=== PATIENT | female | born 1990 | race Caucasian/White ===

== ENCOUNTER 2018-09-15 04:58 | Inpatient (IN) | payer MEDICAID ==
[2018-09-15] VITALS (17 sets, daily range): BP systolic 92–113; BP diastolic 51–88
[~2018-09-15] VITALS: Ht 165.1 cm; Wt 83.9 kg
[~2018-09-15 04:58] MED LIST: PREN-96 PO
[2018-09-15] MEDS ORDERED: LACTATED RINGER'S 1,000 ML IV SCH (05:04)
[2018-09-15 06:00] LABS: Basophils # (auto) 0.1 uL; Basophils % (auto) 0.9 % (0.0-2.0); Eosinophils # (auto) 0.1 uL; Eosinophils % (auto) 0.9 % (0.0-7.0); Hematocrit 37.6 % (36.0-46.0); Hemoglobin 12.5 g/dL (12.2-16.2); Lymphocytes % (auto) 14.7 % (10.0-50.0); Mean Corpuscular Hemoglobin 29.5 pg (28.0-32.0); Mean Corpuscular Hgb Conc. 33.2 g/dL (32.0-36.0); Mean Corpuscular Volume 88.7 fL (80.0-100.0); Monocytes # (auto) 0.5 uL; Monocytes % (auto) 6.9 % (0.0-12.0); Neutrophils # (auto) 5.2 uL; Neutrophils % (auto) 76.6 % (37.0-80.0); Platelet Count (auto) 162 10^3/uL (140-450); Red Blood Cells 4.24 10^6/uL (4.0-5.20); Red Cell Distribution Width 14.1 % (11.8-14.3); White Blood Cell 6.7 10^3/uL (4.4-10.8)
[2018-09-15 06:11] LABS: Urine Bacteria FEW /hpf (None Seen); Urine Blood Negative /uL (Negative); Urine Mucus FEW (None Seen); Urine Specific Gravity 1.015 (1.001-1.035); Urine WBC 1 /hpf (0 - 5)
[2018-09-15 06:16] LABS: INR < 0.93 (0.9-1.15); Partial Thromboplastin Time 27.3 sec (23.64-32.05)
[2018-09-15 06:20] LABS: Albumin 2.8 g/dL (3.4-5.0); BUN/Creatinine Ratio 13.3; Calcium 8.6 mg/dL (8.5-10.1); Potassium 3.9 mmol/L (3.5-5.1)
[2018-09-15 06:22] LABS: Bilirubin, Total 0.4 mg/dL (0.2-1.0); Total Protein 6.8 g/dL (6.4-8.2)
[2018-09-15] MEDS ORDERED: ePHEDrine SULFATE 50 MG/ML AMP ONE (08:59)
[2018-09-15] MEDS ORDERED: PHENYLEPHRINE HCL 10 MG/ML VL ONE (08:59)
[2018-09-15] MEDS ORDERED: OXYTOCIN 10 UNIT/ML 10ML VIAL ONE (09:02)
[2018-09-15] MEDS ORDERED: ceFAZolin 1GM VL ONE (09:02)
[2018-09-15] MEDS ORDERED: TETRACAINE 1% INJ 2 ML VIAL IJ ONE ×2 (09:32→09:49)
[2018-09-15] MEDS ORDERED: MORPHINE SULF(PF) 0.5MG/ML 10ML VIAL ONE (09:51)
[2018-09-15] MEDS ORDERED: MIDAZOLAM HCL 1MG/1ML-2 ML VIAL ONE (10:58)
[2018-09-15] MEDS ORDERED: diphenhdrAMINE HCL 50 MG/1 ML VL IV PRN (11:45)
[2018-09-15] MEDS ORDERED: ONDANSETRON HCL 4 MG/2 ML VIAL IV ONE (11:45)
[2018-09-15] MEDS ORDERED: HYDROmorphone HCL 2 MG/ML VL IV PRN ×2 (11:45)
[2018-09-15] MEDS ORDERED: METOCLOPRAMIDE HCL 5MG/ml INJ 2ml VIAL IV ONE (11:45)
[2018-09-15] MEDS ORDERED: KETOROLAC TROMETH 15 mg/ml 1ML VL IV PRN (11:45)
[2018-09-15] MEDS ORDERED: NALOXONE HCL 0.4 MG/ML VIAL IV PRN ×2 (11:45)
[2018-09-15] MEDS ORDERED: ONDANSETRON HCL 4 MG/2 ML VIAL IV PRN ×2 (11:45)
[2018-09-15] MEDS: KETOROLAC TROMETH 15 mg/ml 1ML VL IV SCH ×3 (12:00→23:39)
[2018-09-15] MEDS ORDERED: OXYTOCIN 10UNIT/ML 1ML VIAL ONE (12:07)
--- NOTE | 2018-09-15 13:30 | NUR ---
Post Op for LDRP: Received patient from PACU via bed to room 7B. Patient A/A/Ox4, abdominal binder and bilateral SCD's are in place, IV patent running LR with 20 unit Pitocin placed on pump and infusing per order, incisional site dressing clean/dry/intact and Funez Catheter to gravity draining clear yellow urine. Incentive Spirometer at bedside and instruction on proper use with return demonstration done by patient. Frequent vital signs taken. See flowsheet.
[2018-09-15] MEDS ORDERED: ACETAMINOPHEN IV 1000 MG/100ML (10MG/ML) IV ONE (14:45)
[2018-09-15] MEDS: ceFAZolin 1GM/50ML 50 ML IV SCH (18:53)
[2018-09-15] MEDS: LACTATED RINGER'S 1,000 ML IV SCH (21:55)
--- NOTE | 2018-09-15 23:15 | NUR ---
Ambulation: Pericare done, clean peripad and underwear provided. Patient OOB with standby assistance by RN to bedside chair. Patient ambulated with steady gait. Clean gown provided and bed linen changed. Patient reports no dizziness or light headedness, patient ambulates in hallway with RN standby assistance. Patient able to ambulate with steady gait, no distress noted. Patient back to bed, call light within reach and patient able to make needs known.
[2018-09-16] MEDS: ceFAZolin 1GM/50ML 50 ML IV SCH ×2 (02:37→11:46)
[2018-09-16 02:51] VITALS: BP 96/56
[2018-09-16 05:08] LABS: RPR Non Reactive (Non Reactive)
[2018-09-16] MEDS: KETOROLAC TROMETH 15 mg/ml 1ML VL IV SCH (05:42)
[2018-09-16 05:54] LABS: Basophils # (auto) 0 uL; Basophils % (auto) 0.1 % (0.0-2.0); Eosinophils # (auto) 0 uL; Eosinophils % (auto) 0.2 % (0.0-7.0); Hematocrit 33.7 % (36.0-46.0); Hemoglobin 11.6 g/dL (12.2-16.2); Lymphocytes # (auto) 0.6 uL; Lymphocytes % (auto) 6.9 % (10.0-50.0); Mean Corpuscular Hemoglobin 30.4 pg (28.0-32.0); Mean Corpuscular Hgb Conc. 34.3 g/dL (32.0-36.0); Mean Corpuscular Volume 88.6 fL (80.0-100.0); Monocytes # (auto) 0.5 uL; Monocytes % (auto) 5.7 % (0.0-12.0); Neutrophils % (auto) 87.1 % (37.0-80.0); Platelet Count (auto) 148 10^3/uL (140-450); Red Cell Distribution Width 14.3 % (11.8-14.3); White Blood Cell 8.1 10^3/uL (4.4-10.8)
[2018-09-16 06:44] VITALS: BP 108/58
[2018-09-16] MEDS ORDERED: HYDROcodone-ACET 5/325MG TAB PO PRN (07:15)
[2018-09-16] MEDS ORDERED: BISACODYL 10 MG RECT SUPP PR PRN (07:15)
--- NOTE | 2018-09-16 07:15 | NUR ---
SPARKS CATHETER DISCONTINUED Order to discontinue sparks catheter. Sparks discontinued with clean technique following deflation of balloon. 600 ml of dark yellow urine. Patient tolerated well with no complaints of pain. Continue care.
[2018-09-16] MEDS: SIMETHICONE 80 MG CHEWABLE TABLET PO SCH ×3 (08:02→21:44)
[2018-09-16] MEDS: DOCUSATE CALCIUM 240 MG CAP PO SCH (10:00)
[2018-09-16] MEDS: DOCUSATE SOD 100 MG CAP PO SCH ×2 (10:00→21:44)
[2018-09-16 11:10] VITALS: BP 100/67
[2018-09-16] MEDS: FERROUS SULFATE 325 MG TAB PO SCH ×2 (11:46→21:44)
[2018-09-16] MEDS: IBUPROFEN 800 MG TAB PO PRN ×2 (13:19→21:45)
[2018-09-16 15:30] VITALS: BP 93/63
--- NOTE | 2018-09-16 15:50 | NUR ---
Teaching: . Discussed different positions, proper latch, feeding cues, and baby-led . Provided information of medication side effects related to . All questions and concerns addressed at this time. Patient verbalized understanding of information. infant latched on, bonding well.
[2018-09-16] MEDS: HYDROcodone-ACET 5/325MG TAB PO PRN ×2 (16:50→22:51)
--- NOTE | 2018-09-16 18:30 | NUR ---
IS teaching provided to patient. Instructed to use IS at least 10x per hour. Patient verbalizes understanding.
[2018-09-16 19:00] VITALS: BP 95/57
--- NOTE | 2018-09-16 22:15 | NUR ---
Patient ambulates around bedroom at this time. No distress noted.
[2018-09-16 23:13] VITALS: BP 98/64
[2018-09-17 03:20] VITALS: BP 94/64
[2018-09-17] MEDS: HYDROcodone-ACET 5/325MG TAB PO PRN ×2 (04:22→19:47)
[2018-09-17] MEDS: SIMETHICONE 80 MG CHEWABLE TABLET PO SCH ×4 (05:47→22:15)
--- NOTE | 2018-09-17 06:15 | NUR ---
Report received from MUNA Britt on stable pt. Assumed care of pt. Addendum: 09/17/18 at 0747 by Yaritza Adame RN Amended: Links added.
--- NOTE | 2018-09-17 06:40 | NUR ---
Assessment complete. Pt resting in bed. Pain 0/10. Abdominal incision-BULK SEALER, [address], no redness, no edema, no ecchimosis, edges well approximated. Educated on need to ambulate, drink fluids, call for assistance, use IS 10x hour. Updated on plan of care. Board updated. Verbalized understanding of all information. Call light in reach. Sd rails up x 2. Bed low. Stable.
[2018-09-17 06:47] VITALS: BP 99/62
[2018-09-17] MEDS: DOCUSATE SOD 100 MG CAP PO SCH ×2 (10:35→22:14)
[2018-09-17] MEDS: DOCUSATE CALCIUM 240 MG CAP PO SCH (10:35)
[2018-09-17] MEDS: FERROUS SULFATE 325 MG TAB PO SCH ×2 (10:35→22:14)
[2018-09-17] MEDS: IBUPROFEN 800 MG TAB PO PRN ×2 (10:39→22:13)
[2018-09-17 11:35] VITALS: BP 94/64
[2018-09-17 15:30] VITALS: BP 104/68
--- NOTE | 2018-09-17 17:27 | NUR ---
20G IV d/c'd from left hand with catheter intact. Pt tolerated well.
--- NOTE | 2018-09-17 18:20 | NUR ---
Report given to Bernardo Mcknight RN on stable pt. Relinquished care. Addendum: 09/17/18 at 1850 by Yaritza Adame RN Amended: Links added.
[2018-09-17 19:18] VITALS: BP 103/65
--- NOTE | 2018-09-17 22:10 | NUR ---
Keanu Aponte CNM at bedside removing PT's africa and applying steri strips. PT. tolerating procedure well.
[2018-09-17 23:00] VITALS: BP 96/53
[2018-09-18] MEDS: HYDROcodone-ACET 5/325MG TAB PO PRN ×2 (00:58→09:44)
[2018-09-18 03:00] VITALS: BP 99/66
[2018-09-18] MEDS: IBUPROFEN 800 MG TAB PO PRN (05:55)
[2018-09-18] MEDS: SIMETHICONE 80 MG CHEWABLE TABLET PO SCH ×2 (05:56→11:30)
--- NOTE | 2018-09-18 06:20 | NUR ---
Report received from MUNA Mcknight on stable pt. Assumed care. Addendum: 09/18/18 at 0912 by Yaritza Adame RN Amended: Links added.
[2018-09-18 06:46] VITALS: BP 92/63
--- NOTE | 2018-09-18 06:46 | NUR ---
Lower abdominal incision, with steri strips in place, no bleeding or drainage noted. Abdominal binder on. Incentive Spirometer at bedside, pt educated on use and return demonstration provided. Addendum: 09/18/18 at 1257 by Yaritza Adame RN Amended: Links added.
[2018-09-18] MEDS: DOCUSATE CALCIUM 240 MG CAP PO SCH (09:36)
[2018-09-18] MEDS: DOCUSATE SOD 100 MG CAP PO SCH (09:36)
[2018-09-18] MEDS: FERROUS SULFATE 325 MG TAB PO SCH (09:36)
--- NOTE | 2018-09-18 09:40 | NUR ---
Discharge: Discharge instructions given as ordered. Pt encouraged to follow up with [employer] as instructed. All questions and concerns addressed. Patient verbalized understanding. Medication reconciliation completed and copy given to patient. All required/requested vaccines given and copies of vaccinations given to patient. Patient encouraged to prepare to depart unit.
[2018-09-18 11:18] VITALS: BP 112/70
--- NOTE | 2018-09-18 12:14 | NUR ---
Discharge: Patient taken to vehicle via wheelchair with all personal belongings, accompanied by staff and family member. No distress noted at time of departure, no adverse changes in status since initial assessment.
== END 2018-09-18 12:14 | disposition home or self-care (01) | DRG 540 ==
LOC: LDRP 04:58
PROVIDERS: ADMIT Obstetrics & Gynecology; ATTEND Obstetrics & Gynecology
PROC: 0UB70ZZ Excision of Bilateral Fallopian Tubes, Open Approach (ICD-10-PCS; 2018-09-15)
PROC: 0DNW0ZZ Release Peritoneum, Open Approach (ICD-10-PCS; 2018-09-15)
PROC: 10D00Z1 Extraction of Products of Conception, Low, Open Approach (ICD-10-PCS; principal; 2018-09-15 10:00)
DX: O34.211 Maternal care for low transverse scar from previous cesarean delivery (principal); K66.0 Peritoneal adhesions (postprocedural) (postinfection); O32.1XX0 Maternal care for breech presentation, not applicable or unspecified; O99.62 Diseases of the digestive system complicating childbirth; Z37.0 Single live birth; Z3A.39 39 weeks gestation of pregnancy; Z30.2 Encounter for sterilization
CPT/HCPCS: 36415; 51702; 59025; 80053; 81001; 84112; 85025; 85610; 85730; 86592; 86850; 86900; 86901; 94762; 96361; 96365; 96366; 96375; G0378; J0131; J0690; J2250; J2590